=== PATIENT | female | born 1990 | race Caucasian/White ===

== ENCOUNTER 2019-07-10 11:00 | Inpatient (IN) ==
[2019-07-10] MEDS ORDERED: CeFAZolin 2,000 MG/50 ML BAG IVPB ONE (11:38)
[2019-07-10] MEDS ORDERED: Ringers Solution, Lactated 1,000 ML IVC ONE (11:38)
[2019-07-10] MEDS ORDERED: Metoclopramide 10 MG/2 ML VIAL IVP ONE (11:38)
[2019-07-10] MEDS ORDERED: Famotidine 20 MG/2 ML VIAL IVP ONE (11:38)
[2019-07-10] MEDS ORDERED: Ringers Solution, Lactated 1,000 ML IVC SCH (11:45)
[2019-07-10 12:04] LABS: Basophils % 0.2 %; Eosinophils # 0.1 K/mcL (0.0-0.6); Eosinophils % 1.1 %; Hematocrit 37.6 % (35.3-44.9); Hemoglobin 13.6 g/dL (11.5-15.4); Immature Granulocytes % 0.4 % (0-4); Lymphocytes # 1.7 K/mcL (0.6-4.6); Lymphocytes % 17.3 %; Mean Corpuscular HGB Conc 36.2 g/dL (31.6-35.5); Mean Corpuscular Hemoglobin 31.6 pg (28.0-33.3); Mean Corpuscular Volume 87.2 fL (83.0-100.0); Mean Platelet Volume 11.4 fL (9.4-12.4); Monocytes # 0.6 K/mcL (0.0-1.3); Monocytes % 6.4 %; Neutrophils # 7.3 K/mcL (1.6-8.9); Platelet Count 125 K/mcL (140-400); Red Blood Count 4.31 M/mcL (3.82-4.97); Red Cell Distribution Width 12.7 % (11.5-14.5); Segmented Neutrophils % 74.6 %; White Blood Count 9.8 K/mcL (4.3-11.1)
[2019-07-10] MEDS ORDERED: *HR* Morphine Sulfate/PF 10 MG/10 ML AMPUL ONE (12:28)
[2019-07-10] MEDS ORDERED: *HR* Midazolam HCl 2 MG/2 ML VIAL ONE (12:28)
[2019-07-10] MEDS ORDERED: EPHEDrine 50 MG/ML VIAL ONE (12:28)
[2019-07-10] MEDS ORDERED: *HR* FentaNYL (PF) 100 MCG/2 ML VIAL ONE (12:28)
[2019-07-10] MEDS ORDERED: Ringers Solution, Lactated 1,000 ML ONE (12:29)
[2019-07-10] MEDS ORDERED: Ondansetron 4 MG/2 ML VIAL ONE (12:30)
[2019-07-10] MEDS ORDERED: *HR* Oxytocin 10 UNIT/ML VIAL IM ONE (12:31)
[2019-07-10 12:32] LABS: Amphetamine Screen,Urine Negative ng/mL (Cutoff=1000); Barbiturate Screen,Urine Negative ng/mL (Cutoff=200); Benzodiazepines Screen,Urine Negative ng/mL (Cutoff=200); Cannabinoid Screen,Urine Negative ng/mL (Cutoff = 50); Cocaine Screen,Urine Negative ng/mL (Cutoff= 300); Opiate Screen,Urine Negative ng/mL (Cutoff=300); Phencyclidine Screen,Urine Negative ng/mL (Cutoff=25)
[2019-07-10] MEDS ORDERED: Ketorolac 30 MG/ML VIAL ONE (13:25)
[2019-07-10] MEDS ORDERED: Dexamethasone 4 MG/ML VIAL ONE (13:25)
[2019-07-10] MEDS ORDERED: Oxytocin 20 units/ LR 1000 mL 20 UNIT/1,000 ML BAG IVC ONE (15:27)
[2019-07-10] MEDS ORDERED: Ondansetron 4 MG/2 ML VIAL IVP PRN (16:48)
[2019-07-10] MEDS ORDERED: Simethicone 80 MG TAB.CHEW PO PRN (16:48)
[2019-07-10] MEDS ORDERED: Oxytocin 20 units/ LR 1000 mL 20 UNIT/1,000 ML BAG IVC SCH (16:48)
[2019-07-10] MEDS ORDERED: Metoclopramide 10 MG/2 ML VIAL IVP PRN (16:48)
[2019-07-10] MEDS ORDERED: Sennosides 8.6 MG TABLET PO PRN (16:48)
[2019-07-10] MEDS: metroNIDAZOLE 500 MG TABLET PO SCH (17:31)
[2019-07-10] MEDS: Ibuprofen 600 MG TABLET PO PRN (18:26)
[2019-07-10] MEDS: *HR* Buprenorphine HCl 8 MG TAB.SUBL SL SCH (22:15)
[2019-07-10] MEDS: ceFAZolin 2,000 MG in 0.9 % Sodium Chloride 100 ML IVPB SCH (22:15)
[2019-07-11 04:51] LABS: Basophils % 0.2 %; Eosinophils % 0.3 %; Hematocrit 29.9 % (35.3-44.9); Immature Granulocytes % 0.3 % (0-4); Lymphocytes % 16.9 %; Mean Corpuscular HGB Conc 34.8 g/dL (31.6-35.5); Mean Corpuscular Hemoglobin 31.6 pg (28.0-33.3); Mean Corpuscular Volume 90.9 fL (83.0-100.0); Mean Platelet Volume 11.7 fL (9.4-12.4); Monocytes # 0.9 K/mcL (0.0-1.3); Monocytes % 8.1 %; Neutrophils # 8.7 K/mcL (1.6-8.9); Platelet Count 125 K/mcL (140-400); Red Blood Count 3.29 M/mcL (3.82-4.97); Red Cell Distribution Width 12.7 % (11.5-14.5); Segmented Neutrophils % 74.2 %; White Blood Count 11.7 K/mcL (4.3-11.1)
[2019-07-11 04:52] LABS: Hemoglobin 10.4 g/dL (11.5-15.4)
[2019-07-11] MEDS: Ibuprofen 600 MG TABLET PO PRN ×3 (05:26→21:03)
[2019-07-11] MEDS: ceFAZolin 2,000 MG in 0.9 % Sodium Chloride 100 ML IVPB SCH ×2 (05:27→11:31)
[2019-07-11] MEDS: Prenatal Vit/FA 1 EACH TABLET PO SCH (08:46)
[2019-07-11] MEDS: metroNIDAZOLE 500 MG TABLET PO SCH ×4 (08:47→21:04)
[2019-07-11] MEDS ORDERED: NALOXONE PO SCH (09:00)
[2019-07-11] MEDS ORDERED: [UNRECOGNIZED DRUG - OTHER] PO SCH (09:00)
[2019-07-11] MEDS: *HR* Buprenorphine HCl 8 MG TAB.SUBL SL SCH (21:04)
[2019-07-12 08:24] VITALS: BP 122/78
[2019-07-12] MEDS: Ibuprofen 600 MG TABLET PO PRN (11:03)
[2019-07-12] MEDS: Prenatal Vit/FA 1 EACH TABLET PO SCH (11:03)
[2019-07-12] MEDS: metroNIDAZOLE 500 MG TABLET PO SCH (11:04)
== END 2019-07-12 14:53 | disposition home or self-care (01) | DRG 539 ==
LOC: 1NENULAB 11:21 → 1NENUOBS 16:47
PROVIDERS: ADMIT Obstetrics & Gynecology; ATTEND Obstetrics & Gynecology